=== PATIENT | male | born 1990 ===

== ENCOUNTER → 2020-11-25 | Outpatient (CLI) | payer OTHER | LOC: MHCPAIN 08:21 → EDBD 08:21 | DX: M47.812 Spondylosis without myelopathy or radiculopathy, cervical region (principal); M54.2 Cervicalgia; G89.29 Other chronic pain | CPT/HCPCS: G0463 ==

== ENCOUNTER → 2020-12-04 | Outpatient (CLI) | payer OTHER | LOC: MHCPAIN 09:03 | DX: M47.818 Spondylosis without myelopathy or radiculopathy, sacral and sacrococcygeal region (principal); M53.3 Sacrococcygeal disorders, not elsewhere classified | CPT/HCPCS: G0260; J1040; Q9967 ==

== ENCOUNTER → 2020-12-24 | Outpatient (CLI) | payer OTHER | LOC: MHCPAIN 08:53 | DX: M47.816 Spondylosis without myelopathy or radiculopathy, lumbar region (principal); M53.3 Sacrococcygeal disorders, not elsewhere classified; M79.18 Myalgia, other site; G57.02 Lesion of sciatic nerve, left lower limb | CPT/HCPCS: G0463 ==

== ENCOUNTER → 2021-01-05 | Outpatient (CLI) | payer OTHER | LOC: MHCPAIN 10:46 | DX: M53.3 Sacrococcygeal disorders, not elsewhere classified (principal); M79.18 Myalgia, other site; G57.01 Lesion of sciatic nerve, right lower limb | CPT/HCPCS: J1040 ==

== ENCOUNTER → 2021-02-04 | Outpatient (CLI) | payer OTHER | LOC: MHCPAIN 08:30 | DX: M54.5 Low back pain (principal); M53.3 Sacrococcygeal disorders, not elsewhere classified; M79.2 Neuralgia and neuritis, unspecified; G57.02 Lesion of sciatic nerve, left lower limb | CPT/HCPCS: G0463 ==